=== PATIENT | male | born 1965 | race Hispanic/Latino ===

== ENCOUNTER 2023-11-08 22:52 | Emergency (ER) | payer BC, SELFPAY ==
--- NOTE | 2023-11-09 00:11 | EDPHYS ---
Physician Documentation [facility] Name: Andres Duarte Age: 58 yrs Sex: Male : 1965 Arrival Date: 11/08/2023 Time: 22:52 Bed 19 Private MD: ED Physician Vicky Crystal HPI: 11/08 00:06 This 58 yrs old Male presents to ER via Ambulatory with complaints of Fall sp3 Injury, Shoulder Pain. 00:06 58-year-old male with no past medical history presents with left-sided shoulder upper sp3 chest and clavicular pain after falling mechanically [place] He denies any head injury or any other injury to any other parts of his body. No problems breathing. ROS otherwise negative.. Historical: - Allergies: 11/07 23:17 No Known Allergies; as6 - PMHx: 23:17 None; as6 - PSHx: 23:17 knee; eye; nose; as6 - Immunization history:: Adult Immunizations up to date. - Infectious Disease History:: Denies. - Social history:: Smoking status: Patient denies any tobacco usage or history of. ROS: 11/08 00:07 Constitutional: Negative for fever, chills, and weight loss, Eyes: Negative for injury, sp3 pain, redness, and discharge, ENT: Negative for injury, pain, and discharge, Neck: Negative for injury, pain, and swelling, Cardiovascular: Negative for chest pain, palpitations, and edema, Respiratory: Negative for shortness of breath, cough, wheezing, and pleuritic chest pain, Abdomen/GI: Negative for abdominal pain, nausea, vomiting, diarrhea, and constipation, Back: Negative for injury and pain, Skin: Negative for injury, rash, and discoloration, Neuro: Negative for headache, weakness, numbness, tingling, and seizure, Psych: Negative for depression, anxiety, suicide ideation, homicidal ideation, and hallucinations, Allergy/Immunology: Negative for hives, rash, and allergies, Endocrine: Negative for neck swelling, polydipsia, polyuria, polyphagia, and marked weight changes, Hematologic/Lymphatic: Negative for swollen nodes, abnormal bleeding, and unusual bruising, All other systems are negative, Exam: 00:07 Constitutional: This is a well developed, well nourished patient who is awake, alert, sp3 and in no acute distress. Head/Face: Normocephalic, atraumatic. Eyes: Pupils equal round and reactive to light, extra-ocular motions intact. Lids and lashes normal. Conjunctiva and sclera are non-icteric and not injected. Cornea within normal limits. Periorbital areas with no swelling, redness, or edema. Neck: Trachea midline, no thyromegaly or masses palpated, and no cervical lymphadenopathy. Supple, full range of motion without nuchal rigidity, or vertebral point tenderness. No Meningismus. Chest/axilla: Normal chest wall appearance and motion. Nontender with no deformity. No lesions are appreciated. Cardiovascular: Regular rate and rhythm with a normal S1 and S2. No gallops, murmurs, or rubs. Normal PMI, no JVD. No pulse deficits. Respiratory: Lungs have equal breath sounds bilaterally, clear to auscultation and percussion. No rales, rhonchi or wheezes noted. No increased work of breathing, no retractions or nasal flaring. Abdomen/GI: Soft, non-tender, with normal bowel sounds. No distension or tympany. No guarding or rebound. No evidence of tenderness throughout. Back: No spinal tenderness. No costovertebral tenderness. Full range of motion. Skin: Warm, dry with normal turgor. Normal color with no rashes, no lesions, and no evidence of cellulitis. Neuro: Awake and alert, GCS 15, oriented to person, place, time, and situation. Cranial nerves II-XII grossly intact. Motor strength 5/5 in all extremities. Sensory grossly intact. Cerebellar exam normal. Normal gait. Psych: Awake, alert, with orientation to person, place and time. Behavior, mood, and affect are within normal limits. 00:07 Musculoskeletal/extremity: Pain to palpation over clavicle and lateral shoulder. No clinical dislocation.. Vital Signs: 11/07 23:16 BP 133 / 88; Pulse 105; Resp 18; Temp 97.5; Pulse Ox 96% ; Weight 99.79 kg; Height 5 as6 ft. 8 in. ; Pain 7/10; 11/08 00:19 BP 129 / 80; Pulse 91; Resp 19; Temp 97.5(TE); Pulse Ox 96% on R/A; Pain 5/10; tm6 06/26 23:16 Body Mass Index 33.45 (99.79 kg, 172.72 cm) as6 11/07 23:16 Pain Scale: Adult as6 11/08 00:19 Pain Scale: Adult tm6 MDM: 11/07 23:27 Patient medically screened. sp3 11/08 00:08 Data reviewed: vital signs, nurses notes, radiologic studies. ED course: 58-year-old sp3 male with mechanical ground-level fall on left shoulder area. X-rays of the left clavicle shoulder and chest x-ray are all pending. Disposition pending workup and patient course with any intervention as indicated. Patient declined any pain medication stating he took Aleve prior to arrival.. 00:09 ED course: Patient with acromioclavicular joint separation. Will place patient in sling sp3 and follow-up with orthopedics.. 11/07 23:27 Order name: Shoulder Left (2 View) XRAY sp3 11/07 23:32 Order name: Clavicle Left XRAY sp3 11/07 23:32 Order name: CXR XRAY sp3 Administered Medications: No medications were administered Disposition Summary: 11/09/23 00:11 Discharge Ordered Notes: Location: Home sp3 Condition: Stable sp3 Diagnosis - Acromioclavicular joint separation sp3 Followup: sp3 - With: Tim Holm MD - When: Upon discharge from the Emergency Department - Reason: Recheck today's complaints Discharge Instructions: - Discharge Summary Sheet sp3 - Acromioclavicular Separation sp3 - How to Use a Sling sp3 Forms: - Medication Reconciliation Form sp3 - Antibiotic Education sp3 - Prescription Opioid Use sp3 - Patient Portal Instructions sp3 - Leadership Thank You Letter sp3 - Work release form tm6 Prescriptions: - Diclofenac Sodium 75 mg Oral Tablet Sustained Release - take 1 tablet ORAL route 2 times per day; 30 tablet; Refills: 0, Product sp3 Selection Permitted Signatures: Dispatcher [employer] EDMS Vicky Crystal MD MD sp3 Gray Schroeder, SHAYNE RN as6 Corrections: (The following items were deleted from the chart) 11/07 23:17 23:17 PSHx: None; as6 as6 23:28 23:28 Shoulder Left 2 View+RAD.RAD.BRZ ordered. EDMS EDMS
--- NOTE | 2023-11-09 00:11 | ER ---
Nurse's Notes [facility] Name: Andres Duarte Age: 58 yrs Sex: Male : 1965 Arrival Date: 11/08/2023 Time: 22:52 Bed 19 Private MD: Diagnosis: Acromioclavicular joint separation Presentation: 11/07 23:17 Chief complaint: Patient states: pt fell this evening and landed on his left shoulder. as6 Coronavirus screen: At this time, the client does not indicate any symptoms associated with coronavirus-19. Ebola Screen: No symptoms or risks identified at this time. Initial Sepsis Screen: Does the patient meet any 2 criteria? No. Patient's initial sepsis screen is negative. Does the patient have a suspected source of infection? No. Patient's initial sepsis screen is negative. Risk Assessment: Do you want to hurt yourself or someone else? Patient reports no desire to harm self or others. Onset of symptoms was November 08, 2023. 23:17 Acuity: BOBBY 4 as6 23:17 Method Of Arrival: Ambulatory as6 Historical: - Allergies: 23:17 No Known Allergies; as6 - PMHx: 23:17 None; as6 - PSHx: 23:17 knee; eye; nose; as6 - Immunization history:: Adult Immunizations up to date. - Infectious Disease History:: Denies. - Social history:: Smoking status: Patient denies any tobacco usage or history of. Screenin:34 [facility] ED Fall Risk Assessment (Adult) History of falling in the last 3 months, tm6 including since admission Yes- single mechanical fall (1 pt) Confusion or Disorientation No (0 pts) Intoxicated or Sedated No (0 pts) Impaired Gait No (0 pts) Mobility Assist Device Used No (0 pt) Altered Elimination No (0 pt) Score/Fall Risk Level 0 - 2 = Low Risk Oriented to surroundings, Maintained a safe environment, Educated pt \T\ family on fall prevention, incl call for assistance when getting out of bed. Abuse screen: Denies threats or abuse. Denies injuries from another. Nutritional screening: No deficits noted. Tuberculosis screening: No symptoms or risk factors identified. Assessment: 23:34 General: Appears in no apparent distress. Behavior is calm, cooperative. Pain: tm6 Complains of pain in anterior aspect of left shoulder and posterior aspect of left shoulder Pain does not radiate. Pain currently is 8 out of 10 on a pain scale. Neuro: Level of Consciousness is awake, alert, obeys commands, Oriented to person, place, time, situation. Cardiovascular: No deficits noted. Patient's skin is warm and dry. Respiratory: Airway is patent Respiratory effort is even, unlabored, Respiratory pattern is regular, symmetrical. GI: No signs and/or symptoms were reported involving the gastrointestinal system. Abdomen is round non-distended. : No signs and/or symptoms were reported regarding the genitourinary system. EENT: No signs and/or symptoms were reported regarding the EENT system. Derm: No signs and/or symptoms reported regarding the dermatologic system. Musculoskeletal: Reports pain in anterior aspect of left shoulder and posterior aspect of left shoulder. 11/08 00:32 Reassessment: Patient appears in no apparent distress at this time. Patient and/or tm6 family updated on plan of care and expected duration. Pain level reassessed. Patient is alert, oriented x 3, equal unlabored respirations, skin warm/dry/pink. Vital Signs: 11/07 23:16 BP 133 / 88; Pulse 105; Resp 18; Temp 97.5; Pulse Ox 96% ; Weight 99.79 kg; Height 5 as6 ft. 8 in. ; Pain 7/10; 11/08 00:19 BP 129 / 80; Pulse 91; Resp 19; Temp 97.5(TE); Pulse Ox 96% on R/A; Pain 5/10; tm6 11/07 23:16 Body Mass Index 33.45 (99.79 kg, 172.72 cm) as6 11/07 23:16 Pain Scale: Adult as6 11/08 00:19 Pain Scale: Adult tm6 ED Course: 11/07 22:57 Patient arrived in ED. ra3 22:59 Vicky Crystal MD is Attending Physician. sp3 23:17 Arm band placed on right wrist. as6 23:18 Irina Aviles, SHAYNE is Primary Nurse. tm6 23:18 Triage completed. as6 23:34 Patient has correct armband on for positive identification. Bed in low position. Call tm6 light in reach. Side rails up X 1. Provided Education on: use of call coates. Client placed on continuous cardiac and pulse oximetry monitoring. NIBP monitoring applied. Pulse ox on. NIBP on. Door closed. Noise minimized. 11/08 00:02 Shoulder Left (2 View) XRAY In Process Unspecified. EDMS 00:02 Clavicle Left XRAY In Process Unspecified. EDMS 00:02 CXR XRAY In Process Unspecified. EDMS 00:10 Tim Holm MD is Referral Physician. sp3 00:33 No provider procedures requiring assistance completed. Patient did not have IV access tm6 during this emergency room visit. Shoulder immobilizer applied on left shoulder. Administered Medications: No medications were administered Medication: 11/07 23:34 VIS not applicable for this client. tm6 Outcome: 11/08 00:11 Discharge ordered by . sp3 00:33 Discharged to home ambulatory, with family, tm6 00:33 Condition: stable 00:33 Discharge instructions given to patient, Instructed on discharge instructions, follow up and referral plans. medication usage, use of sling Demonstrated understanding of instructions, follow-up care, medications, use of sling Prescriptions given X 1, 00:35 Patient left the ED. tm6 Signatures: Dispatcher [employer] [facility] Vicky Crystal MD MD sp3 Gray Schroeder RN RN as6 Irina Aviles RN RN tm6 Dorinda Hagen ra3 Corrections: (The following items were deleted from the chart) 11/07 23:17 23:17 PSHx: None; as6 as6
[2023-11-09 00:54] VITALS: BP 129/80; TEMP 97.5; O2SAT 96
--- NOTE | 2023-11-09 12:55 | RAD REPORT ---
EXAM DESCRIPTION: XR Left Clavicle Complete, 2 or More Views CLINICAL HISTORY: The patient is 58 years old and is Male; trauma TECHNIQUE: Frontal and lordotic views of the left clavicle. COMPARISON: No relevant prior studies available. FINDINGS: BONES/JOINTS: Mild acromioclavicular joint space narrowing and spurring is present. No acute fracture. No dislocation. SOFT TISSUES: Unremarkable. IMPRESSION: No acute findings in the left clavicle. Electronically signed by: Katya Betts MD 11/09/2023 12:15 AM CDT RP Due to temporary technical issues with the PACS/Fluency reporting system, reports are being signed by the in house radiologist without review as a courtesy to ensure prompt reporting. The interpreting r adiologist is fully responsible for the content of the report.
--- NOTE | 2023-11-09 13:14 | RAD REPORT ---
EXAM DESCRIPTION: XR Left Shoulder Complete, 2 or More Views CLINICAL HISTORY: The patient is 58 years old and is Male; trauma TECHNIQUE: Two or more views of the left shoulder. COMPARISON: No relevant prior studies available. FINDINGS: BONES/JOINTS: Mild acromioclavicular joint space narrowing and spurring is present. The glenohumeral joint is intact. No acute fracture. No dislocation. SOFT TISSUES: Unremarkable. LUNGS: The visualized lung is clear. IMPRESSION: No acute findings in the left shoulder. Electronically signed by: Katya Betts MD 11/09/2023 12:14 AM CDT RP Due to temporary technical issues with the PACS/Fluency reporting system, reports are being signed by the in house radiologist without review as a courtesy to ensure prompt reporting. The interpreting r adiologist is fully responsible for the content of the report.
--- NOTE | 2023-11-09 13:15 | RAD REPORT ---
EXAM DESCRIPTION: XR Chest, 1 View CLINICAL HISTORY: The patient is 58 years old and is Male; fall TECHNIQUE: Frontal view of the chest. COMPARISON: No relevant prior studies available. FINDINGS: LUNGS: Unremarkable. No consolidation. PLEURAL SPACE: Unremarkable. No pneumothorax. HEART: Unremarkable. No cardiomegaly. MEDIASTINUM: Unremarkable. Normal mediastinal contour. BONES/JOINTS: Degenerative change of the spine and shoulders is noted. No acute fracture. UPPER ABDOMEN: Unremarkable as visualized. IMPRESSION: No acute cardiopulmonary process. Electronically signed by: Katya Betts MD 11/09/2023 12:15 AM CDT RP Due to temporary technical issues with the PACS/Fluency reporting system, reports are being signed by the in house radiologist without review as a courtesy to ensure prompt reporting. The interpreting r adiologist is fully responsible for the content of the report.
== END 2023-11-09 00:35 | disposition home or self-care (01) ==
LOC: ER 22:52
DX: S43.102A Unspecified dislocation of left acromioclavicular joint, initial encounter (principal); W19.XXXA Unspecified fall, initial encounter
CPT/HCPCS: 71045; 99284